=== PATIENT | male | born 1960 | race Caucasian/White ===

== ENCOUNTER 2019-10-04 09:56 | Outpatient (CLI) | payer BC, SELFPAY ==
[2019-10-08 05:14] LABS: SARS-CoV-2 RNA Undetected (Undetected); SARS-CoV-2 Specimen Source Nasopharynx
== END 2019-10-04 10:16 ==
PROVIDERS: PCP Nurse Practitioner Family; Visit Provider Nurse Practitioner Family
DX: Z11.59 Encounter for screening for other viral diseases (principal)
CPT/HCPCS: U0003

== ENCOUNTER 2022-01-28 16:33 | Outpatient (REF) | payer BC, SELFPAY ==
[2022-01-28 19:09] LABS: ALT 25 U/L (16-63); AST 19 U/L (15-37); Albumin 3.7 g/dL (3.4-5.0); Alkaline Phosphatase 84 U/L (46-116); Anion Gap 6.9 mmol/L (3-11); BUN 16 mg/dL (7-18); Bilirubin, Total 0.8 mg/dL (0.2-1.0); CO2 28.1 mmol/L (21.0-32.0); CREATININE 1.2 mg/dL (0.70-1.30); Calcium 8.8 mg/dL (8.5-10.1); Calculated LDL 172 mg/dL (<100); Chloride 104 mmol/L (98-107); Cholesterol 245 mg/dL (<200); Glucose 81 mg/dL (74-106); HDL Cholesterol 57 mg/dL (40-60); Potassium 4.4 mmol/L (3.5-5.1); Sodium 139 mmol/L (136-145); Total Protein 7.4 g/dL (6.4-8.2); Triglyceride 81 mg/dL (<150)
[2022-01-28 19:10] LABS: HCT 49.7 % (40.0-50.0); HGB 16.7 g/dL (13.5-17.5); MCH 31.8 pg (27.0-33.0); MCHC 33.6 % (32.0-36.0); MCV 95 fL (80-95); MPV 11.1 fL (8.0-11.0); Platelet Count 219 10^3/uL (130-400); RBC 5.25 10^6/uL (4.36-5.78); RDW 11.9 % (11.8-14.1); RDW-SD 41.9 fL; WBC 6.75 10^3/uL (4.4-10.8)
[2022-01-28 19:13] LABS: ESR 9 mm/hr (0-20)
[2022-01-31 09:45] LABS: PSA, Screening 2.6 ng/mL (<=4.5)
== END 2022-01-28 16:34 | disposition home or self-care (01) ==
LOC: NCHCN 16:33
PROVIDERS: PCP Nurse Practitioner Family; Visit Provider Family Medicine
DX: R53.83 Other fatigue (principal); R10.9 Unspecified abdominal pain; L40.9 Psoriasis, unspecified
CPT/HCPCS: 80053; 80061; 84153; 85027; 85652

== ENCOUNTER 2022-05-12 16:32 | Outpatient (REF) | payer BC, SELFPAY ==
[2022-05-12 15:17] LABS: ALT 31 U/L (16-63); AST 22 U/L (15-37); Albumin 3.6 g/dL (3.4-5.0); Alkaline Phosphatase 100 U/L (46-116); Bilirubin, Direct 0.2 mg/dL (0.0-0.2); Bilirubin, Total 0.9 mg/dL (0.2-1.0)
[2022-05-12 15:44] LABS: Calculated LDL 94 mg/dL (<100); Cholesterol 171 mg/dL (<200); HDL Cholesterol 64 mg/dL (40-60); Triglyceride 68 mg/dL (<150)
== END 2022-05-12 16:33 | disposition home or self-care (01) ==
LOC: NCHCN 16:32
PROVIDERS: PCP Nurse Practitioner Family; Visit Provider Family Medicine
DX: R53.83 Other fatigue (principal); R10.9 Unspecified abdominal pain; Z00.00 Encounter for general adult medical examination without abnormal findings
CPT/HCPCS: 80061; 80076

== ENCOUNTER 2022-11-16 16:43 | Outpatient (REF) | payer BC, SELFPAY ==
[2022-11-16 21:45] LABS: Abs Immature Grans 0.01 10^3/uL (0.0-0.06); Absolute Basophil Count 0.02 10^3/uL (0.0-0.2); Absolute Lymphocyte Count 2.21 10^3/uL (1.2-3.4); Absolute Monocyte Count 0.56 10^3/uL (0.1-0.8); Absolute Neutrophil Count 3.21 10^3/uL (1.2-6.7); Basophils % 0.3; Eosinophils % 1.6; HCT 49.2 % (40.0-50.0); HGB 16.5 g/dL (13.5-17.5); Immature Grans % 0.2; Lymphocytes % 36.2; MCH 32.2 pg (27.0-33.0); MCHC 33.5 % (32.0-36.0); MCV 96 fL (80-95); Monocytes % 9.2; Neutrophils % 52.5; Platelet Count 214 10^3/uL (130-400); RBC 5.13 10^6/uL (4.36-5.78); RDW-SD 42.9 fL; WBC 6.11 10^3/uL (4.4-10.8)
[2022-11-16 22:08] LABS: ESR 4 mm/hr (0-20)
[2022-11-16 22:19] LABS: ALT 36 U/L (16-63); AST 16 U/L (15-37); Albumin 3.5 g/dL (3.4-5.0); Alkaline Phosphatase 103 U/L (46-116); Anion Gap 5.1 mmol/L (3-11); BUN 17 mg/dL (7-18); Bilirubin, Total 0.7 mg/dL (0.2-1.0); CO2 29.9 mmol/L (21.0-32.0); Chloride 101 mmol/L (98-107); Estimated GFR 84.05 (mL/min/1.73m2); Glucose 89 mg/dL (74-106); Sodium 136 mmol/L (136-145)
[2022-11-18 10:21] LABS: Lyme Ab w Rflx to Lyme Confirm Negative (Negative)
[2022-11-20 17:13] LABS: Anaplasma phagocytophilum Negative (Negative); B. miyamotoi PCR Negative (Negative); Babesia divergens/MO-1 Negative (Negative); Babesia duncani Negative (Negative); Babesia microti Negative (Negative); Ehrlichia chaffeensis Negative (Negative); Ehrlichia ewingii/canis Negative (Negative); Ehrlichia muris eauclairensis Negative (Negative)
== END 2022-11-16 16:44 | disposition home or self-care (01) ==
LOC: NCHCN 16:43
PROVIDERS: PCP Nurse Practitioner Family; Visit Provider Family Medicine
DX: M25.552 Pain in left hip (principal); M25.50 Pain in unspecified joint; Z11.8 Encounter for screening for other infectious and parasitic diseases
CPT/HCPCS: 80053; 85652; 87798; 85025; 86618

== ENCOUNTER 2022-11-17 10:01 | Outpatient (CLI) | payer BC, SELFPAY ==
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
== END 2022-11-17 10:21 ==
LOC: DI 10:01
PROVIDERS: PCP Nurse Practitioner Family; Visit Provider Family Medicine
DX: M25.552 Pain in left hip (principal)
CPT/HCPCS: 73502

== ENCOUNTER 2024-02-08 21:25 | Outpatient (REF) | payer MEDICARE, BC, SELFPAY ==
[2024-02-08 14:37] LABS: HCT 49.2 % (40.0-50.0); HGB 16.5 g/dL (13.5-17.5); MCH 32.5 pg (27.0-33.0); MCHC 33.5 % (32.0-36.0); MCV 97 fL (80-95); MPV 10.8 fL (8.0-11.0); Platelet Count 178 10^3/uL (130-400); RBC 5.07 10^6/uL (4.36-5.78); RDW 12.5 % (11.8-14.1); RDW-SD 44.1 fL; WBC 5.31 10^3/uL (4.4-10.8)
[2024-02-08 14:57] LABS: ALT 39 U/L (16-63); AST 18 U/L (15-37); Albumin 3.5 g/dL (3.4-5.0); Alkaline Phosphatase 92 U/L (46-116); Anion Gap 6.6 mmol/L (3-11); BUN 11 mg/dL (7-18); Bilirubin, Total 1.35 mg/dL (0.2-1.0); CO2 29.4 mmol/L (21.0-32.0); Calcium 8.6 mg/dL (8.5-10.1); Calculated LDL 95 mg/dL (<100); Chloride 105 mmol/L (98-107); Cholesterol 172 mg/dL (<200); Estimated GFR 83.52 (mL/min/1.73m2); Glucose 88 mg/dL (74-106); HDL Cholesterol 65 mg/dL (40-60); Potassium 4.5 mmol/L (3.5-5.1); Sodium 141 mmol/L (136-145); Total Protein 6.8 g/dL (6.4-8.2); Triglyceride 61 mg/dL (<150)
== END 2024-02-08 21:26 | disposition home or self-care (01) ==
LOC: NCHCN 21:25
PROVIDERS: PCP Nurse Practitioner Family; Visit Provider Family Medicine
DX: Z00.00 Encounter for general adult medical examination without abnormal findings (principal); E78.5 Hyperlipidemia, unspecified
CPT/HCPCS: 80053; 80061; 85027

== ENCOUNTER 2024-02-19 12:38 | Emergency (ER) | payer MEDICARE, BC, SELFPAY ==
[2024-02-19 12:46] VITALS: BP 171/104; PULSE 72; RESP 14; TEMP 36.6; O2SAT 98
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
[2024-02-19 15:47] VITALS: BP 156/91; PULSE 63; RESP 16; TEMP 36.9; O2SAT 99
[2024-02-19 16:10] VITALS: BP 162/99; PULSE 68; RESP 16; O2SAT 99
== END 2024-02-19 16:12 | disposition home or self-care (01) ==
PROVIDERS: Emergency Provider Nurse Practitioner Family; PCP Nurse Practitioner Family
DX: H43.313 Vitreous membranes and strands, bilateral (principal); H33.23 Serous retinal detachment, bilateral; V03.10XA Pedestrian on foot injured in collision with car, pick-up truck or van in traffic accident, initial encounter; Y92.481 Parking lot as the place of occurrence of the external cause
CPT/HCPCS: 99284; 70450; 71046; 72125; 99283